=== PATIENT | male | born 1995 | race Caucasian/White ===

== ENCOUNTER 2018-11-27 22:01 | Emergency (ER) | payer OTHER ==
[~2018-11-27] VITALS: Ht 170.2 cm; Wt 80.9 kg
[2018-11-27 22:05] VITALS: Ht 170.2 cm; Wt 80.9 kg
[2018-11-27] MEDS ORDERED: LIDOCAINE 1% (MPF) 5 ML VIAL INFIL ONE (22:30)
[2018-11-27] MEDS ORDERED: IBUPROFEN 800 MG TAB PO ONE (22:30)
[2018-11-27] MEDS ORDERED: ACETAMINOPHEN 325 MG TAB PO ONE (23:00)
[2018-11-27] MEDS ORDERED: DIPHTH/TET/ACEL PERTUSS (ADULT) 0.5 ML VIAL IM* ONE (23:00)
[2018-11-28] MEDS ORDERED: ACET500C5 PO (01:33)
--- NOTE | 2018-11-28 01:34 | ERD ---
ER Documentation Chief Complaint Chief Complaint Pt has a complex large laceration to R ankle HPI 23 year old male presents to the ED complaining of a laceration to the back of the right ankle. Pt states that a mirror fell on his ankle 20 min ago causing it to break and cut open his skin. He denies any previous injury to his right foot/ankle. He reports the pain is 8/10 and burning in character. He denies any other lacerations on his body at this time. He states he has not taken any medication for pain. He states the bleeding has been reduced and mostly controlled. He reports allergy to Ibuprofen Denies other med hx Denies allergies to any meds States he has not had TDAP in past 5 years ROS All systems reviewed and are negative except as per history of present illness. Medications Home Meds Active Scripts Acetaminophen* (Tylophen*) 500 Mg Capsule, 1 CAP PO Q6H PRN for PAIN AND OR ELEVATED TEMP, #20 CAP Prov:MARY CARMEN LEMA PA-C 11/28/18 Allergies Allergies: Coded Allergies: ibuprofen (Verified Allergy, Unknown, 11/27/18) PMhx/Soc History of Surgery: Yes (Appendectomy) Anesthesia Reaction: No Hx Neurological Disorder: No Hx Respiratory Disorders: No Hx Cardiac Disorders: Yes (Hyperlipidemia) Hx Miscellaneous Medical Probl: Yes (Hernia) Hx Alcohol Use: Yes (Occasional) Hx Substance Use: No Hx Tobacco Use: No Smoking Status: Never smoker FmHx Family History: No diabetes Physical Exam Vitals Vital Signs Date Temp Pulse Resp B/P (MAP) Pulse Ox O2 O2 Flow FiO2 Time Delivery Rate 11/28/18 98.0 82 16 115/82 98 Room Air 01:58 (93) 11/27/18 98.7 89 24 140/96 95 22:05 (111) Physical Exam Const: No acute distress Head: Atraumatic Eyes: Normal Conjunctiva ENT: Normal External Ears, Nose and Mouth. Neck: Full range of motion. No meningismus. Resp: Clear to auscultation bilaterally Cardio: Regular rate and rhythm, no murmurs Abd: Soft, non tender, non distended. Normal bowel sounds Skin: Large 5 inch laceration on the back of right ankle. Skin flap is hanging off, bleeding is mostly controlled. Good pulses 2+, good sensation, no tendon damage Back: No midline or flank tenderness Ext: No cyanosis, or edema Neur: Awake and alert Psych: Normal Mood and Affect Results 24 hrs Current Medications Medications Dose Sig/Jay Start Time Status Last (Trade) Ordered Route PRN Stop Time Admin Dose Reason Admin Ibuprofen 800 mg ONCE ONCE 11/27/18 DC (Motrin) PO 22:30 11/27/18 22:36 Lidocaine 5 ml ONCE ONCE 11/27/18 DC (Xylocaine INFIL 22:30 11/27/18 1% (Mpf)) 22:31 Diphtheria/ 0.5 ml ONCE ONCE 11/27/18 DC 11/27/18 Tetanus/Acell IM* 23:00 11/27/18 22:51 Pertussis 23:01 (Adacel) 650 mg ONCE ONCE 11/27/18 DC 11/27/18 Acetaminophen PO 23:00 11/27/18 22:50 (Tylenol 23:01 Tab) Bacitracin 1 applic ONCE ONCE 11/28/18 DC 11/28/18 (Bacitracin TOP 02:00 11/28/18 01:51 0.5%/ Zinc 02:01 Oint) Procedures/MDM ED COURSE: The patient was stable throughout ED course. I kept the patient informed of laboratory and diagnostic imaging results throughout the ED course. DIAGNOSTIC IMAGING: Read by radiologist. PROCEDURE: XR Ankle. CLINICAL INDICATION: Laceration, pain. TECHNIQUE: Three views of the right ankle. COMPARISON: None available. FINDINGS: No fracture or dislocation is identified. The ankle mortise appears intact in this nonstressed study. The joint spaces are preserved. There is a laceration along the posterior aspect of the ankle. There is no definite radiopaque foreign body. Two punctate densities projecting over the lateral foot on the oblique view are not visible on the other views, and are thought to represent external artifact. IMPRESSION: No fracture or dislocation of the right ankle. Laceration along the posterior aspect of the ankle. No definite radiopaque foreign body. Two punctate densities projecting over the lateral foot on the oblique view are not visible on the other views, and are thought to represent external artifact. RPTAT: HTAR .Boom Chambers MD, MD Date Time Electronically viewed and signed by .Boom Chambers MD, MD on 11/28/2018 00:32 PROCEDURES: LACERATION: The patient was verbally consented prior to procedure. Patient was explained the risks, benefits and alternatives to this procedure. Location: back of right ankle Length: 5 inches Anesthesia: local 1% lidocaine, 5 cc Inspection: The wound was thoroughly explored and no foreign bodies, deep tissue, tendon or structural injuries were noted. xray imaging showed no FB. Repair: The area was prepared and draped in the usual sterile manner with the wound exposed. [8] sutures were placed with good wound closure and wound approximation. Bleeding was minimal. The patient tolerated the procedure well with no complications. The wound was dressed with bacitracin and sterile gauze. The patient was neurovascularly intact post- procedure. Post- procedural wound care was discussed with the patient. Pt told to follow up in 2 days for recheck. MEDICATIONS GIVEN: Tylenol, TDAP Patient tolerated medication well with no adverse reactions. Patient reported improvement in pain. MEDICAL DECISION MAKING: Patient is a 23 year old male presenting with a laceration to the back of his right ankle. He states a mirror fell and broke on him 20 min ago cutting his skin. Bleeding was controlled in the ED. Pt was given tylenol for pain. The wound was cleaned well. No tendon damage was found. Good pulses, good sensation, and fair ROM secondary to pain. Xray showed no FB inside the wound. Pt had 8 sutures placed by me without any complications. Antibacterial dressing was placed over the repair. He was told to keep the wound dry and to return back in 2 days for a recheck which he agreed. Vital signs were reviewed. Patient is afebrile. Patient was not hypoxic. Patient was hemodynamically stable. Patient was told to follow up with primary care for further care and management. PRESCRIPTION: tylenol DISCHARGE: At this time, patient is stable for discharge and outpatient management. I have instructed the patient to follow-up with his/her primary care physician in 1-2 days. I have discussed with the patient the possibility of needing to see a specialist for further workup and imaging studies if symptoms persist. I have instructed the patient to promptly return to the ER for any new or worsening symptoms including increased pain, fever, nausea, vomiting, weakness or LOC. The patient expressed understanding of and agreement with this plan. All questions were answered. Home care instructions were provided. Disclaimer: Inadvertent spelling and grammatical errors are likely due to EHR/dictation software use and do not reflect on the overall quality of patient care. Also, please note that the electronic time recorded on this note does not necessarily reflect the actual time of the patient encounter. Departure Diagnosis: Primary Impression: Laceration Patient Instructions: Laceration, Foot Referrals: [facility] YOU HAVE RECEIVED A MEDICAL SCREENING EXAM AND THE RESULTS INDICATE THAT YOU DO NOT HAVE A CONDITION THAT REQUIRES URGENT TREATMENT IN THE EMERGENCY DEPARTMENT. FURTHER EVALUATION AND TREATMENT OF YOUR CONDITION CAN WAIT UNTIL YOU ARE SEEN IN YOUR DOCTORS OFFICE WITHIN THE NEXT 1-2 DAYS. IT IS YOUR RESPONSIBILITY TO MAKE AN APPOINTMENT FOR FOLOW-UP CARE. IF YOU HAVE A PRIMARY DOCTOR --you should call your primary doctor and schedule an appointment IF YOU DO NOT HAVE A PRIMARY DOCTOR YOU CAN CALL OUR PHYSICIAN REFERRAL HOTLINE AT IF YOU CAN NOT AFFORD TO SEE A PHYSICIAN YOU CAN CHOSE FROM THE FOLLOWING [facility] [address] [facility] [address] [facility] [facility] [address] [facility] [address] [facility] [address] [facility]. [facility]. [address] [facility] YOU HAVE RECEIVED A MEDICAL SCREENING EXAM AND THE RESULTS INDICATE THAT YOU DO NOT HAVE A CONDITION THAT REQUIRES URGENT TREATMENT IN THE EMERGENCY DEPARTMENT. FURTHER EVALUATION AND TREATMENT OF YOUR CONDITION CAN WAIT UNTIL YOU ARE SEEN IN YOUR DOCTORS OFFICE WITHIN THE NEXT 1-2 DAYS. IT IS YOUR RESPONSIBILITY TO MAKE AN APPOINTMENT FOR FOLOW-UP CARE. IF YOU HAVE A PRIMARY DOCTOR --you should call your primary doctor and schedule and appointment IF YOU DO NOT HAVE A PRIMARY DOCTOR YOU CAN CALL OUR PHYSICIAN REFERRAL HOTLINE AT . IF YOU CAN NOT AFFORD TO SEE A PHYSICIAN YOU CAN CHOSE FROM THE FOLLOWING [facility] INSTITUTIONS: [facility] [address] [place] [address] [facility] [address] [place] [address] [facility] [address] [place] [address] Additional Instructions: Return to this facility in 2 DAYS for a follow-up exam.Return sooner if your condition worsens. Call your primary care doctor TOMORROW for an appointment during the next 1-2 days.See the doctor sooner or return here if your condition worsens before your appointment time. MARY CARMEN LEMA PA-C Nov 28, 2018 01:34
[2018-11-28 01:58] VITALS: BP 115/82; PULSE 82; RESP 16
[2018-11-28] MEDS ORDERED: BACITRACIN 0.5%/ZINC 28.35 GM OINT TOP ONE (02:00)
== END 2018-11-28 01:58 | disposition home or self-care (01) ==
LOC: FTE 22:01
DX: S91.011A Laceration without foreign body, right ankle, initial encounter (principal); W25.XXXA Contact with sharp glass, initial encounter; Y92.9 Unspecified place or not applicable; Z23 Encounter for immunization
CPT/HCPCS: 12002; 73610; 90471; 90715; Z7502; Z7610

== ENCOUNTER 2018-11-29 15:30 | Emergency (ER) | payer OTHER ==
[~2018-11-29] VITALS: Ht 162.6 cm; Wt 80.0 kg
[~2018-11-29 15:30] MED LIST: ACET500C5 PO
[2018-11-29 15:35] VITALS: BP 120/70; PULSE 83; RESP 18; Ht 162.6 cm; Wt 80.0 kg
--- NOTE | 2018-11-29 16:30 | ERD ---
ER Documentation Chief Complaint Chief Complaint wound check HPI 23-year-old male has been history of hernia presents for wound check. Patient had a laceration of the right heel area repaired 2 days ago. He thinks that the wound is healing well. Denies any fevers. The pain is getting better. Denies chest pain or shortness of breath. No other modifying factors noted, no other treatment tried at home. ROS All systems reviewed and are negative except as per history of present illness. Medications Home Meds Active Scripts Acetaminophen* (Tylophen*) 500 Mg Capsule, 1 CAP PO Q6H PRN for PAIN AND OR ELEVATED TEMP, #20 CAP Prov:MARY CARMEN LEMA PA-C 11/28/18 Allergies Allergies: Coded Allergies: ibuprofen (Verified Allergy, Unknown, 11/27/18) PMhx/Soc History of hernia History of Surgery: Yes (Appendectomy) Anesthesia Reaction: No Hx Neurological Disorder: No Hx Respiratory Disorders: No Hx Cardiac Disorders: Yes (Hyperlipidemia) Hx Miscellaneous Medical Probl: Yes (Hernia) Hx Alcohol Use: Yes (Occasional) Hx Substance Use: No Hx Tobacco Use: No FmHx Family History: No coronary disease Physical Exam Vitals Vital Signs Date Temp Pulse Resp B/P (MAP) Pulse Ox O2 O2 Flow FiO2 Time Delivery Rate 11/29/18 98.1 83 18 120/70 99 15:35 (87) Physical Exam Const: No acute distress Resp: Clear to auscultation bilaterally Cardio: Regular rate and rhythm, no murmurs, peripheral pulses intact Abd: Soft, non tender, non distended. Normal bowel sounds Skin: Right posterior foot heel area laceration noted with stitches intact, area is clean. There is no active discharge. No increased warmth. Back: No midline or flank tenderness Ext: No cyanosis, or edema Neur: Awake and alert, bilateral lower extremity sensation intact Psych: Normal Mood and Affect Procedures/MDM Medical Decision Making: Patient presents for wound check of a right heel laceration that was repaired 2 days ago. Patient appeared well on physical exam. Patient is neurovascular intact. The wound does not appear infected. Patient advised regarding wound care. Advised to return to ER in 12 days for removal of stitches. Patient advised to follow up with PCP in 1-2 days. Patient advised to return to ED for new or worsening symptoms. Patient stable on discharge from the ED. Disclaimer: Inadvertent spelling and grammatical errors are likely due to EHR/dictation software use and do not reflect on the overall quality of patient care. Also, please note that the electronic time recorded on this note does not necessarily reflect the actual time of the patient encounter. Departure Diagnosis: Primary Impression: Encounter for wound re-check Condition: Fair Patient Instructions: Wound Check, Lac F/U (No Infection) Referrals: EL LILLIANA HERMOSILLO (PCP) Additional Instructions: Call your primary care doctor TOMORROW for an appointment during the next 1-2 days.See the doctor sooner or return here if your condition worsens before your appointment time. Return in ER in 12 days for have stitches removed. soap and water twice day and antibiotic ointment after each cleaning. MIHIR HERRERA DO Nov 29, 2018 16:30
== END 2018-11-29 16:23 | disposition home or self-care (01) ==
LOC: E/R 15:30
DX: Z48.01 Encounter for change or removal of surgical wound dressing (principal)
CPT/HCPCS: 99281

== ENCOUNTER 2018-12-11 13:39 | Emergency (ER) | payer OTHER ==
[~2018-12-11] VITALS: Ht 170.2 cm; Wt 80.1 kg
[2018-12-11 13:44] VITALS: BP 134/76; PULSE 84; RESP 17; Ht 170.2 cm; Wt 80.1 kg
--- NOTE | 2018-12-11 14:14 | ERD ---
ER Documentation Chief Complaint Chief Complaint SUTURE REMOVAL ON RIGHT HEEL HPI 23-year-old male presents for evaluation of suture removal on the right heel. Laceration occurred on November 27, he has not had a fever, no drainage, otherwise doing well and able to ambulate. ROS All systems reviewed and are negative except as per history of present illness. Medications Home Meds Active Scripts Acetaminophen* (Tylophen*) 500 Mg Capsule, 1 CAP PO Q6H PRN for PAIN AND OR ELEVATED TEMP, #20 CAP Prov:MARY CARMEN LEMA PA-C 11/28/18 Allergies Allergies: Coded Allergies: ibuprofen (Verified Allergy, Unknown, 11/27/18) PMhx/Soc History of Surgery: Yes (Appendectomy) Anesthesia Reaction: No Hx Neurological Disorder: No Hx Respiratory Disorders: No Hx Cardiac Disorders: Yes (Hyperlipidemia) Hx Miscellaneous Medical Probl: Yes (Hernia) Hx Alcohol Use: Yes (Occasional) Hx Substance Use: No Hx Tobacco Use: No Smoking Status: Never smoker FmHx Family History: No diabetes Physical Exam Vitals Vital Signs Date Temp Pulse Resp B/P (MAP) Pulse Ox O2 O2 Flow FiO2 Time Delivery Rate 12/11/18 98.1 84 17 134/76 97 13:44 (95) Physical Exam Const: Afebrile, nontoxic Head: Atraumatic Eyes: Normal conjunctiva ENT: Normal external ears, nose and mouth. Neck: Resp: Normal respiratory effort Cardio: Abd: Skin: Back: Ext: Right lower extremity: 11 superficial stitches noted, wound appears clean dry and intact, extends about 4 cm, there is no purulent drainage foot compartment soft and easily compressible, normal skin color Neur: Awake and alert Psych: Normal mood and affect Procedures/MDM 23-year-old male presents for evaluation of suture removal, wound appears to be healing well. Suture Removal Sutures removed with tweezers and scissors without incident. Wound shows no evidence of infection, foreign body, neurologic injury, vascular injury, open joint or tendon laceration. Patient to follow up PRN. Departure Diagnosis: Primary Impression: Encounter for removal of sutures Condition: Stable Patient Instructions: Suture Removal, No Complication Additional Instructions: Call your primary care doctor TOMORROW for an appointment during the next 2-3 days.See the doctor sooner or return here if your condition worsens before your appointment time. GISELLE THOMPSON MD Dec 11, 2018 14:14
== END 2018-12-11 14:38 | disposition home or self-care (01) ==
LOC: E/R 13:39
DX: Z48.02 Encounter for removal of sutures (principal)
CPT/HCPCS: 99281